=== PATIENT | female | born 1995 | race Caucasian/White ===

== ENCOUNTER 2016-08-17 15:57 | Inpatient (IN) | payer OTHER ==
[~2016-08-17] VITALS: Ht 157.5 cm; Wt 66.7 kg
[~2016-08-17 15:57] MED LIST: BACTDS PO; CALC600T PO; CEPH-443 PO; FERR240T9 PO; IBUP-1542 PO; PREN-39 PO
[2016-08-17 16:23] VITALS: Ht 157.5 cm; Wt 66.7 kg
[2016-08-17 16:24] VITALS: BP 103/64; PULSE 125; RESP 20
[2016-08-17] MEDS ORDERED: LACTATED RINGER'S 1,000 ML IV STA (16:33)
--- NOTE | 2016-08-17 17:26 | RADRPT ---
Vent Rate: 117 bpm RR Interval: 0 msec IA Interval: 132 msec QRS Duration: 82 msec QT Interval: 316 msec QTC Interval: 440 msec P-R-T [place]: 61 - 11 - 46 degrees Sinus tachycardia Abnormal ECG Electronically Signed By: Doug Brooks [id number]
[2016-08-17] MEDS: LACTATED RINGER'S 1,000 ML IV SCH (18:02)
[2016-08-17 18:52] LABS: ADD SCAN DIFF NO; BASOPHILS % 0.3 % (0.0-2.0); EOSINOPHILS # 0.3 10^3/ul (0.0-0.5); EOSINOPHILS % 2.4 % (0.0-7.0); HEMATOCRIT 31.4 % (37.0-47.0); HEMOGLOBIN 10.6 g/dl (12.0-16.0); LYMPHOCYTES # 1.7 10^3/ul (0.8-2.9); LYMPHOCYTES % 12.6 % (15.0-51.0); MEAN CORPUSCULAR HEMOGLOBIN 29.4 pg (29.0-33.0); MEAN CORPUSCULAR HGB CONC 33.8 g/dl (32.0-37.0); MEAN CORPUSCULAR VOLUME 87.2 fl (82.0-101.0); MONOCYTE # 0.9 10^3/ul (0.3-0.9); MONOCYTES % 6.4 % (0.0-11.0); NEUTROPHIL # 10.5 10^3/ul (1.6-7.5); NEUTROPHILS % 77.6 % (39.0-77.0); PLATELET COUNT 148 10^3/UL (140-415); RED CELL DISTRIBUTION WIDTH 12.6 % (11.5-14.5); WHITE BLOOD COUNT 13.5 10^3/ul (4.8-10.8)
[2016-08-17 18:57] LABS: ADD UMIC NO; URINE BILIRUBIN (Dip) NEGATIVE (NEGATIVE); URINE BLOOD (Dip) NEGATIVE (NEGATIVE); URINE COLOR LT. YELLOW (YELLOW); URINE GLUCOSE (Dip) NEGATIVE (NEGATIVE); URINE KETONES (Dip) NEGATIVE (NEGATIVE); URINE LEUKOCYTE ESTERASE (Dip) NEGATIVE (NEGATIVE); URINE NITRITE (Dip) NEGATIVE (NEGATIVE); URINE TOTAL PROTEIN (Dip) NEGATIVE (NEGATIVE); URINE UROBILINOGEN (Dip) 0.2 E.U./dL (0.1-1.0)
[2016-08-17 19:09] LABS: ALBUMIN 2.9 g/dl (3.3-4.9)
[2016-08-17 19:10] LABS: POTASSIUM 4.5 mmol/L (3.5-5.1)
[2016-08-17 19:12] LABS: BILIRUBIN,INDIRECT 0.2 mg/dl (0-1.1); BILIRUBIN,TOTAL 0.2 mg/dl (0.2-1.3); CREATININE 0.4 mg/dl (0.44-1.00)
[2016-08-17 19:13] LABS: ALBUMIN/GLOBULIN RATIO 0.76; CALCIUM 8.9 mg/dl (8.4-10.2); TOTAL PROTEIN 6.7 g/dl (6.1-8.1)
--- NOTE | 2016-08-17 20:01 | QN ---
Documentation Comment 21 y/o female at 35 + weeks sent in from clinic for finding of asymptomatic tachycardia Patient denies GI symptoms and also denies fever General P/E remained normal except for tachycardia EKG: T inversion on anterior leads Patient's pulse down to 100 and 99 since IV hydration Will obtain medical consult and continue to hydrate If Oked by data warehouse consultant will D/C home ! BOB BARON MD Aug 17, 2016 20:01
[2016-08-17] MEDS ORDERED: ACETAMINOPHEN 325 MG TAB PO PRN (21:30)
[2016-08-17] MEDS ORDERED: DOCUSATE SODIUM 100 MG CAP PO PRN (21:30)
--- NOTE | 2016-08-17 22:28 | TRIAGE ---
OB Triage Datetime Report Generated by CPN: 08/17/2016 22:28 Datetime: 08/17/2016 21:16 Stage of : OB Triage Datetime: 08/17/2016 21:13 Stage of : OB Triage Datetime: 08/17/2016 20:52 Stage of : OB Triage Labor Evaluation Frequency: 0 Monitor Mode: External Resting Tone [place]: Relaxed Heart Rate FHR Baseline Rate: 130 Monitor Mode: External US Variability: Moderate 6-25 bpm Accelerations: 15X15 Decelerations: None Category: Category I Datetime: 08/17/2016 20:03 Stage of : OB Triage Labor Evaluation Frequency: 0 Monitor Mode: External Resting Tone [place]: Relaxed Heart Rate FHR Baseline Rate: 140 Monitor Mode: External US FHR Baseline Changes: No Baseline Change Variability: Moderate 6-25 bpm Accelerations: 15X15 Decelerations: None Category: Category I Datetime: 08/17/2016 19:25 Stage of : OB Triage Datetime: 08/17/2016 19:17 Stage of : OB Triage Datetime: 08/17/2016 19:00 Stage of : OB Triage Monitor Mode: External Resting Tone [place]: Relaxed Heart Rate FHR Baseline Rate: 150 Monitor Mode: External US FHR Baseline Changes: No Baseline Change Variability: Moderate 6-25 bpm Accelerations: 15X15 Decelerations: None Category: Category I Datetime: 08/17/2016 18:00 Stage of : OB Triage Labor Evaluation Frequency: 0 Monitor Mode: External Resting Tone [place]: Relaxed Heart Rate FHR Baseline Rate: 150 Monitor Mode: External US Variability: Moderate 6-25 bpm Accelerations: 15X15 Decelerations: None Category: Category I Datetime: 08/17/2016 17:00 Labor Evaluation Frequency: 0 Monitor Mode: External Resting Tone [place]: Relaxed Heart Rate FHR Baseline Rate: 145 Monitor Mode: External US Variability: Moderate 6-25 bpm Accelerations: 15X15 Decelerations: None Category: Category I Datetime: 08/17/2016 16:18 Assessment Type: Triage Maternal Assessment Level of Consciousness: Fully Conscious DTR's/Clonus: DTRs 2+; No Clonus Headache: Denies Blurred Vision: No Respiratory Effort: Unlabored Breath Sounds, Left: Clear and Equal Breath Sounds, Right: Clear and Equal Nausea/Vomiting: Denies (Annotations: VOMOTING X2. LAST NIGHT AND THIS AM) RUQ Epigastric Pain: Denies Lower Extremities Edema: None Degree: None Upper Extremities Edema: None Degree: None Facial Edema: None Fall Risk Assessment History of Falling: (0) No Secondary Diagnosis: (0) No Ambulatory Aid: (0) Bedrest/Nurse Assist IV Therapy: (0) No Gait: (0) Normal/Bedrest/Immobile Mental Status: (0) Oriented to Own Ability Fall Score: 0 Fall Risk Score Definition: No Risk: No action required Datetime: 08/17/2016 16:16 Time of Arrival: 08/17/2016 15:50 EGA: 35.6 Arrived By: Ambulatory Arrived From: Office Chief Complaint: TACHYCARDIA, SORE THROAT, COLD SX,EMESIS X2, GENERALIZED WEAKNESS Movement: Present Contractions: Occasional Rupture of Membranes: Denies Vaginal Bleeding: None Vaginal Discharge: Denies Recent Sexual Intercouse: Denies Abdominal Trauma: Not Applicable Patient Complaints: Other Time Provider Notified: 08/17/2016 16:17 Provider Notified: BAO Initial Plan: VS, EFM, EKG, IV HYDRATION Datetime: 08/17/2016 16:12 Stage of : OB Triage Monitor Mode: External Monitor Mode: External US
[2016-08-18] MEDS: LACTATED RINGER'S 1,000 ML IV SCH ×2 (03:28→11:16)
--- NOTE | 2016-08-18 05:54 | CONS ---
Date/Time of Note Date/Time of Note DATE: 08/18/16 TIME: 05:32 Assessment/Plan Assessment/Plan Additional Assessment/Plan 1. Sinus Tachycardia with TWI in anterior leads: with no chest pain - Cont IVF as HR is improving and she showed physical exam finding of dehydration - Will check troponin, thyroid profile and Obtain a 2D-echo - will repeat EKG - Cardiology consult as needed 2. Rule out- Influenza - will check Inf A & B 3. Leukocytosis: probably 2/2 above - will f/u result - UA neg for UTI. Will however check urine culture given reported lower back/ right flank area pain. Additional infectious w/u as needed 4. 35 weeks : no complication - mgmt per OB Will cont to follow and and provide further recommendation per clinical course Consultation Date/Type/Reason Admit Date/Time Aug 17, 2016 at 21:40 Reason for Consultation Tachycardia and Abnormal EKG . Hx of Present Illness This is a 21 yo female who is currently 35 weeks who was admitted for tachycardia and abnormal EKG. She initially came for regular check-up and found to be tachycardic(sinus). EKG showed TWI in anterior leads and as such admitted for further work-up. She is accompanied by her who also provided history. She complained of "cold" which she said got from her 18month old child. Main symptom is runny nose. she also reported some throat pain with po intake and when touching her neck anteriorly. Denied cough, fever/chills or myalgia. Did however c/o lower back pain, which is slightly on the right side. She also said she has been slightly short of breath and dizzy for last few days when doing some house work, otherwise denied palpitations or chest pain. she did have an episode of vomiting last night shortly after having a soup. Denied diaphoresis. In the triage, she received IVF and tachycardia has improved from around 120 to 100. She does have dry lips and dry oral mucosa. . Past Medical History Medical History: no pertinent history Past Surgical History Past Surgical Hx: no surgical history Social History Alcohol Use: none Smoking Status: Never smoker Drug Use: none Exam/Review of Systems Vital Signs Vitals Vital Signs Date Time Temp Pulse Resp B/P Pulse Ox O2 Delivery O2 Flow Rate FiO2 08/17/16 16:24 98.6 125 20 103/64 Room Air Intake and Output 08/17/16 08/17/16 08/18/16 15:00 23:00 07:00 Intake Total 1250 ml 625 ml Output Total 1000 ml Balance 1250 ml -375 ml Exam Constitutional: alert, oriented, well developed Head: atraumatic, normocephalic Eyes: EOMI Neck: other (right sided neck pain on palpation) Respiratory: clear to auscultation, normal air movement Cardiovascular: other (tachycardic with regular rhythm) Gastrointestinal: non-tender, other ( abd), soft Extremities: normal pulses, other (no edema) Results Result Diagram: 08/17/16 1755 08/17/16 1755 Results 24 hrs Laboratory Tests Test 08/17/16 17:55 08/17/16 23:53 Alanine Aminotransferase (ALT/SGPT) 20 Albumin 2.9 L Albumin/Globulin Ratio 0.76 Alkaline Phosphatase 121 Anion Gap 12 Aspartate Amino Transf (AST/SGOT) 16 Basophils # 0.0 Basophils % 0.3 Blood Urea Nitrogen 4 L Calcium Level 8.9 Carbon Dioxide Level 27 Chloride Level 103 Creatinine 0.40 L Direct Bilirubin 0.00 Eosinophils # 0.3 Eosinophils % 2.4 Globulin 3.80 H Glucose Level 98 Hematocrit 31.4 L Hemoglobin 10.6 L Indirect Bilirubin 0.2 Lymphocytes # 1.7 Lymphocytes % 12.6 L Mean Corpuscular Hemoglobin 29.4 Mean Corpuscular Hemoglobin Concent 33.8 Mean Corpuscular Volume 87.2 Mean Platelet Volume 11.0 #H Monocytes # 0.9 Monocytes % 6.4 Neutrophils # 10.5 H Neutrophils % 77.6 H Nucleated Red Blood Cells # 0.0 Nucleated Red Blood Cells % 0.0 Platelet Count 148 Potassium Level 4.5 Red Blood Count 3.60 L Red Cell Distribution Width 12.6 Sodium Level 137 Total Bilirubin 0.2 Total Protein 6.7 Urine Bilirubin NEGATIVE Urine Clarity CLEAR Urine Color LT. YELLOW Urine Glucose NEGATIVE Urine Hemoglobin NEGATIVE Urine Ketones NEGATIVE Urine Leukocyte Esterase NEGATIVE Urine Nitrite NEGATIVE Urine Specific [place] <=1.005 L Urine Total Protein NEGATIVE Urine Urobilinogen 0.2 E.U./dL Urine pH 6.5 White Blood Count 13.5 H Creatinine Kinase MB (Mass) 0.70 Free Thyroxine 0.94 Thyroid Stimulating Hormone (TSH) 1.890 Troponin I < 0.012 Medications Medications Current Medications Lactated Ringer's (Lr) 1,000 ml @ 125 mls/hr Q8H IV Last administered on t 03:28; Admin Dose 125 MLS/HR; Start 08/17/16 at 18:00 Prenat Multivit/ Newspaper Columnist/Iron/Folic Ac ( S) 1 tab DAILY PO ; Start at 09:00 Docusate Sodium (Colace) 100 mg DAILY PRN PO CONSTIPATION; Start 08/17/16 at 21 :30 Acetaminophen (Tylenol Tab) 650 mg Q4H PRN PO PAIN AND OR ELEVATED TEMP; Start 08/17/16 at 21:30 NICHOLAS PICKARD MD Aug 18, 2016 05:43
[2016-08-18 08:31] LABS: TROPONIN-I < 0.012 ng/ml (0.00-0.12)
[2016-08-18] MEDS ORDERED: MULTIVIT/MIN/FOLATE/IRON/PREN TAB PO SCH (09:00)
--- NOTE | 2016-08-18 11:26 | RADRPT ---
Echocardiogram Report Patient Name: DIAN SALAZAR Gender: Female Date: 1995 Study Date: 18-Aug-2016 Clerical Receptionist: Christos Long [facility] Location: 2270 Ref. Physician: NICHOLAS PICKARD Quality: Good Procedures: Transthoracic echocardiogram with complete 2D, M-Mode, and doppler examination. Indications: Abnormal EKG. Tachycardia. 2D/M Mode Doppler Measurement Value Normal Ranges Measurement Value Normal Ranges LVIDd 2D 4.9 3.5 - 5.6 cm AV Peak Alberto 1.2 m/sec LVIDs 2D 3.4 2.1 - 4.1 cm AV Peak PG 6.2 mmHg LVPWd 2D 0.8 0.6 - 1.1 cm LVOT Peak Alberto 1.0 m/sec IVSd 2D 0.8 0.6 - 1.1 cm LVOT Peak PG 3.8 mmHg AoR Diam 2D 2.5 2.0 - 3.7 cm EDV 2D 113.3 cm3 ESV 2D 39.2 cm3 LA Dimen 2D 3.7 2.3 - 4.0 cm Findings Left Ventricle: Normal left ventricular systolic function. Normal left ventricular cavity size. Normal left ventricular wall thickness. Ejection fraction is visually estimated at 60 %. Tissue Doppler/Mitral Doppler indices are within normal limits. Right Ventricle: Normal right ventricular size. Normal right ventricular systolic function. Left Atrium: The left atrium is normal in size. Right Atrium: The right atrium is normal in size. Mitral Valve: Normal appearance and function of the mitral valve with trace physiologic regurgitation. Aortic Valve: Normal appearance of the aortic valve. No significant aortic stenosis or insufficiency. Tricuspid Valve: Normal appearance and function of the tricuspid valve with trace physiologic regurgitation. Pulmonic Valve: Normal pulmonic valve appearance. Pericardium: Normal pericardium with no significant pericardial effusion. Aorta: Normal aortic root. IVC: Normal size and normal respiratory collapse consistent with normal right atrial pressure. Conclusions 1.Normal left ventricular systolic function. Normal left ventricular cavity size. Normal left ventricular wall thickness. Ejection fraction is visually estimated at 60 %. Tissue Doppler/Mitral Doppler indices are within normal limits. 2.Normal right ventricular size. Normal right ventricular systolic function. 3.The left atrium is normal in size. 4.The right atrium is normal in size. 5.No significant valvular stenosis or regurgitation seen. 6.Normal pericardium with no significant pericardial effusion. Electronically Signed By: Hernan Diaz 18-Aug-2016 11:25:59 -0800 Patient Name: DIAN SALAZAR Study Date: 18-Aug-[id number]
--- NOTE | 2016-08-18 11:56 | PN ---
Date/Time of Note Date/Time of Note DATE: 08/18/16 TIME: 11:45 Assessment/Plan VTE Prophylaxis VTE Prophylaxis Intervention: SCD's Lines/Catheters IV Catheter Type (from Nrsg): Peripheral IV Assessment/Plan Assessment/Plan 1. Sinus Tachycardia, dehydration related, IVF, ok to discharge at evening from medicine 2. GERD, protonix 3. Leukocytosis: stress related, no fever 4. 35 weeks : no complication, mgmt per O Subjective 24 Hr Interval Summary Free Text/Dictation recenly had "cold". poor appetite with less oral intake and she vomited yesterday. Exam/Review of Systems Vital Signs Vitals Vital Signs Date Time Temp Pulse Resp B/P Pulse Ox O2 Delivery O2 Flow Rate FiO2 08/17/16 16:24 98.6 125 20 103/64 Room Air Intake and Output 08/17/16 08/17/16 08/18/16 15:00 23:00 07:00 Intake Total 1250 ml 1000 ml Output Total 1550 ml Balance 1250 ml -550 ml Exam Constitutional: alert, oriented, well developed Psych: nl mood/affect, no complaints Head: atraumatic, normocephalic Eyes: EOMI, nl conjunctiva, nl lids ENMT: nl external ears & nose, nl lips & teeth, nl nasal mucosa & septum Neck: non-tender, supple Respiratory: clear to auscultation, normal air movement, No congested cough, No crackles/rales, No diminished breath sounds, No intercostal retraction, No labored breathing, No other, No respirations, No tactile fremitus, No wheezing Cardiovascular: nl pulses, regular rate and rhythm, No S3, No S4, No bruits, No diastolic murmur, No edema, No gallop, No irregular rhythm, No jugular venous distention (JVD), No murmurs/extra sounds, No other, No rub, No systolic murmur Gastrointestinal: distended (from ), nl liver, spleen, non-tender, soft, No ascites, No bowel sounds, No firm, No hepatomegaly, No mass, No other, No rebound or guarding, No splenomegaly, No surgical scars, No tender Musculoskeletal: nl extremities to inspection Extremities: normal pulses, No calf tenderness, No clubbing, No cyanosis, No edema, No other, No palpable cord, No pitting pedal edema, No tenderness Neurological: REAL ESTATE PROFESSOR II-XII intact, nl mental status, nl speech, nl strength Skin: nl turgor Lymph: nl lymph nodes Results Result Diagram: 08/17/16175408/17/16 175 Results 24 hrs Laboratory Tests Test 08/17/16 17:55 08/17/16 23:53 08/18/16 07:15 Alanine Aminotransferase (ALT/SGPT) 20 Albumin 2.9 L Albumin/Globulin Ratio 0.76 Alkaline Phosphatase 121 Anion Gap 12 Aspartate Amino Transf (AST/SGOT) 16 Basophils # 0.0 Basophils % 0.3 Blood Urea Nitrogen 4 L Calcium Level 8.9 Carbon Dioxide Level 27 Chloride Level 103 Creatinine 0.40 L Direct Bilirubin 0.00 Eosinophils # 0.3 Eosinophils % 2.4 Globulin 3.80 H Glucose Level 98 Hematocrit 31.4 L Hemoglobin 10.6 L Indirect Bilirubin 0.2 Lymphocytes # 1.7 Lymphocytes % 12.6 L Mean Corpuscular Hemoglobin 29.4 Mean Corpuscular Hemoglobin Concent 33.8 Mean Corpuscular Volume 87.2 Mean Platelet Volume 11.0 #H Monocytes # 0.9 Monocytes % 6.4 Neutrophils # 10.5 H Neutrophils % 77.6 H Nucleated Red Blood Cells # 0.0 Nucleated Red Blood Cells % 0.0 Platelet Count 148 Potassium Level 4.5 Red Blood Count 3.60 L Red Cell Distribution Width 12.6 Sodium Level 137 Total Bilirubin 0.2 Total Protein 6.7 Urine Bilirubin NEGATIVE Urine Clarity CLEAR Urine Color LT. YELLOW Urine Glucose NEGATIVE Urine Hemoglobin NEGATIVE Urine Ketones NEGATIVE Urine Leukocyte Esterase NEGATIVE Urine Nitrite NEGATIVE Urine Specific [place] <=1.005 L Urine Total Protein NEGATIVE Urine Urobilinogen 0.2 E.U./dL Urine pH 6.5 White Blood Count 13.5 H Creatinine Kinase MB (Mass) 0.70 0.40 Free Thyroxine 0.94 Thyroid Stimulating Hormone (TSH) 1.890 Troponin I < 0.012 < 0.012 Medications Medications Current Medications Lactated Ringer's (Lr) 1,000 ml @ 125 mls/hr Q8H IV Last administered on t 11:16; Admin Dose 125 MLS/HR; Start 08/17/16 at 18:00 Prenat Multivit/ Form Tamping Machine Operator/Iron/Folic Ac ( S) 1 tab DAILY PO ; Start 3/1/ 17 at 09:00 Docusate Sodium (Colace) 100 mg DAILY PRN PO CONSTIPATION; Start 08/17/16 at 21 :30 Acetaminophen (Tylenol Tab) 650 mg Q4H PRN PO PAIN AND OR ELEVATED TEMP; Start 08/17/16 at 21:30 TANISHA DAVENPORT MD Aug 18, 2016 11:55
[2016-08-18] MEDS ORDERED: SOD CHLORIDE 0.9% 500 ML IV ONE ×2 (12:30)
[2016-08-18] MEDS ORDERED: PANTOPRAZOLE (EC) 40 MG TAB PO SCH (13:00)
--- NOTE | 2016-08-18 14:17 | HP ---
Date/Time of Note Date/Time of Note late entry DATE: 08/18/16 TIME: 14:14 OB - History Hx of Present Free Text/Dictation Sent in from clinic for tachycardia Estimated Due Date: Sep 15, 2016 : 2 Para: 1 Care: Good Care Ultrasounds: Normal mid trimester US Obstetrical Complications: None Medical Complications: None Past Family/Social History * Past Medical, Surgical, Family and Obstetric Histories reviewed from chart. Blood Type: O+ [place]: unknown RPR/VDRL: Negative GBS Status: Unknown HBsAG: Negative OB Admission Exam Vital Signs Vital Signs Vital Signs Date Time Temp Pulse Resp B/P Pulse Ox O2 Delivery O2 Flow Rate FiO2 08/17/16 16:24 98.6 125 20 103/64 Room Air Physical Exam HEENT: WNL Heart: Rhythm Normal Lungs: Clear, Equal Abdomen: WNL Extremities: Normal Reflexes: Normal Cervical Dilatation: None Effacement: 0% Station: -3 Membranes: Intact Heart Rate: 130's Accelerations: Accelerations Present Decelerations: No Decelerations Varibility: Marked Last 72 hours Lab Results CBC & BMP 08/17/16 17:55 Liver Function Test 08/17/16 17:55 Alanine Aminotransferase (ALT/SGPT) 20 Albumin 2.9 L Alkaline Phosphatase 121 Aspartate Amino Transf (AST/SGOT) 16 Direct Bilirubin 0.00 Total Protein 6.7 OB Assessment/Plan Other Assessment: idiopathic tachycardia Other plan: observe for medical consultation BOB BARON MD Aug 18, 2016 14:17
--- NOTE | 2016-08-18 14:18 | QN ---
Documentation Comment Consulted with Dr Rondon over the phone : recommended to CD/C patient home BOB BARON MD Aug 18, 2016 14:18
--- NOTE | 2016-08-18 14:20 | DS ---
Date/Time of Note Date/Time of Note F/U in clinic DATE: 08/18/16 TIME: 14:18 Obstetrical Discharge Record Final Diagnosis Final Diagnosis: not delivered Other Final Diagnosis 21 y/o female admitted with tachycardia and major cardia issues were ruled out Complications Other (Tachycardia) Condition on Discharge Physical Assessment Last Vitals: still has pulse >100 Voiding: Yes Bowel Movement: Yes Breast: Soft, non-tender, Filling Fundus: Other (gravid) Abdomen and Incision: gravid Episiotomy: NA Calf Tenderness: No Patient Condition: Good BOB BARON MD Aug 18, 2016 14:20
--- NOTE | 2016-08-18 14:23 | PD.PPDC ---
METAL CEILING BUILDER Discharge Instruction Provider Information Physician Information 21 y/o female admitted for observation because of tachycardia which remained idiopathic Diagnosis Final Diagnosis: idiopathic tachycardia Condition Patient Condition: Good Diet Diet: Resume Regular Diet Activity/Restrictions Activity: Normal Activity May Shower Restrictions: Nothing in the Vagina Return to clinic for Comment: exertional shortness of breath BOB BARON MD Aug 18, 2016 14:23
--- NOTE | 2016-08-20 13:38 | RADRPT ---
Vent Rate: 0 bpm RR Interval: 0 msec NE Interval: 0 msec QRS Duration: 0 msec QT Interval: 0 msec QTC Interval: 0 msec P-R-T [place]: 0 - 0 - 0 degrees Electronically Signed By: Doug Brooks [id number]
== END 2016-08-18 14:50 | disposition home or self-care (01) | DRG 781 ==
LOC: OBT 15:57 → L-D 15:59 → OBG 21:40 → OBT 21:40
PROVIDERS: ADMIT Obstetrics & Gynecology; ATTEND Obstetrics & Gynecology
DX: O26.893 Other specified pregnancy related conditions, third trimester (principal); O99.113 Other diseases of the blood and blood-forming organs and certain disorders involving the immune mechanism complicating pregnancy, third trimester; O99.283 Endocrine, nutritional and metabolic diseases complicating pregnancy, third trimester; R00.0 Tachycardia, unspecified; E86.0 Dehydration; Z3A.35 35 weeks gestation of pregnancy; O99.613 Diseases of the digestive system complicating pregnancy, third trimester; K21.9 Gastro-esophageal reflux disease without esophagitis; D72.829 Elevated white blood cell count, unspecified
CPT/HCPCS: 36415; 80053; 81003; 82553; 84439; 84443; 84484; 85025; 87086; 87400; 93005; 93306; 96360; 96361; G0463; J7030; J7040; J7120

== ENCOUNTER 2016-08-28 23:30 | Outpatient (CLI) | payer OTHER ==
[~2016-08-28] VITALS: Ht 157.5 cm; Wt 68.7 kg
[~2016-08-28 23:30] MED LIST changes: -BACTDS PO; -CEPH-443 PO; -FERR240T9 PO; -IBUP-1542 PO
[2016-08-28 23:52] VITALS: Ht 157.5 cm; Wt 68.7 kg
[2016-08-28 23:53] VITALS: BP 100/59; PULSE 88; RESP 18
[2016-08-29] MEDS ORDERED: CITRIC ACID/NA CITRATE 30 ML CUP PO ONE (00:30)
--- NOTE | 2016-08-29 01:51 | PN ---
Date/Time of Note Date/Time of Note DATE: 08/29/16 TIME: 01:48 OB Subjective Subjective Subjective 21 yoP 1@ 37 wk 4 days c/o ctx No VB, no LOF, good FM OB Objective Objective Objective Abdomeng- gravid, n/t SVE- 1/70/-2 FHT- Cat I Vamo- irreg ctx Abdomen: WNL Cervical Dilatation: 1cm Effacement: 75% Station: -2 Accelerations: Accelerations Present Decelerations: No Decelerations Contractions on Admission: None Intensity: Mild OB Assessment/Plan Other Assessment: 21 yo P 1 @ 37+ wks, r/o labor - reassuring status, not in labor Other plan: d/c home labor precautions LUIS ROSS MD Aug 29, 2016 01:51
--- NOTE | 2016-08-29 03:43 | TRIAGE ---
OB Triage Datetime Report Generated by CPN: 08/29/2016 03:42 Datetime: 08/29/2016 00:28 Stage of : OB Triage Datetime: 08/29/2016 00:26 Stage of : OB Triage Datetime: 08/29/2016 00:15 Stage of : OB Triage Datetime: 08/28/2016 23:58 Stage of : OB Triage Maternal Assessment Level of Consciousness: Fully Conscious DTR's/Clonus: DTRs 2+; No Clonus Headache: Denies Blurred Vision: No Respiratory Effort: Unlabored; Regular Rhythm; Equal Expansion Breath Sounds, Left: Clear and Equal Breath Sounds, Right: Clear and Equal Nausea/Vomiting: Denies RUQ Epigastric Pain: Denies Lower Extremities Edema: None Upper Extremities Edema: None Facial Edema: None Temperature Route: Oral Fall Risk Assessment History of Falling: (0) No Secondary Diagnosis: (0) No Ambulatory Aid: (0) Bedrest/Nurse Assist IV Therapy: (0) No Gait: (0) Normal/Bedrest/Immobile Mental Status: (0) Oriented to Own Ability Fall Score: 0 Fall Risk Score Definition: No Risk: No action required Labor Evaluation Frequency: 3-4 Monitor Mode: External Duration (sec)2399: 40-70 Quality: Moderate Pattern: Normal: <= 5 Contractions in 10 Minutes Resting Tone [place]: Relaxed Heart Rate FHR Baseline Rate: 140 Monitor Mode: External US Variability: Moderate 6-25 bpm Accelerations: 15X15 Decelerations: None Category: Category I Pain Assessment Pain Scale: 6 Pain Presence: Intermittent Pain Type: Contraction Pain Location: Abdomen Pain Goal: 3 Pain Relief Measures: Comfort Measures Datetime: 08/28/2016 23:56 Stage of : OB Triage Time of Arrival: 08/28/2016 23:25 EGA: 37.4 Arrived By: Ambulatory Arrived From: Home Chief Complaint: PT C/O ABDOMEN PAIN Movement: Present Contractions: Irregular Time Contractions Began: 08/28/2016 19:30 Contractions: 3-5 Rupture of Membranes: Denies Vaginal Discharge: Denies Recent Sexual Intercouse: Denies Abdominal Trauma: Not Applicable Patient Complaints: Contractions Time Provider Notified: 08/29/2016 00:26 Provider Notified: Dr Smith Initial Plan: INITIAL PHYSICAL ASSESSMENT , TOCO AND US APPLIED Vaginal Exam Dilatation (cms): 1.0 Effacement (%): 70 Station: -2 Exam By: MANDI DEAN Membrane Status: Intact Datetime: 08/18/2016 14:02 Labor Evaluation Frequency: 1 Monitor Mode: External Duration (sec)2399: 60 Quality: Mild Resting Tone [place]: Relaxed Heart Rate FHR Baseline Rate: 140 Monitor Mode: External US FHR Baseline Changes: No Baseline Change Variability: Moderate 6-25 bpm Accelerations: 15X15 Decelerations: None Category: Category I Datetime: 08/18/2016 13:00 Labor Evaluation Frequency: 0 Monitor Mode: External Resting Tone [place]: Relaxed Heart Rate FHR Baseline Rate: 140 Monitor Mode: External US FHR Baseline Changes: No Baseline Change Variability: Moderate 6-25 bpm Accelerations: 15X15 Decelerations: None Category: Category I Datetime: 08/18/2016 12:07 Labor Evaluation Frequency: 0 Monitor Mode: External Resting Tone [place]: Relaxed Heart Rate FHR Baseline Rate: 140 Monitor Mode: External US FHR Baseline Changes: No Baseline Change Variability: Moderate 6-25 bpm Accelerations: 15X15 Decelerations: None Category: Category I Datetime: 08/18/2016 11:02 Pain Location: Head Pain Assessment Comments: pt refuses tylenol or ice pack. states she wants to sleep Datetime: 08/18/2016 10:57 Labor Evaluation Frequency: 0 Monitor Mode: External Resting Tone [place]: Relaxed Heart Rate FHR Baseline Rate: 140 Monitor Mode: External US FHR Baseline Changes: No Baseline Change Variability: Moderate 6-25 bpm Accelerations: 15X15 Decelerations: None Category: Category I Datetime: 08/18/2016 10:47 Labor Evaluation Frequency: 0 Monitor Mode: External Resting Tone [place]: Relaxed Heart Rate FHR Baseline Rate: 140 Monitor Mode: External US FHR Baseline Changes: No Baseline Change Variability: Moderate 6-25 bpm Accelerations: 15X15 Decelerations: None Category: Category I Datetime: 08/18/2016 10:00 Labor Evaluation Frequency: 0 Monitor Mode: External Resting Tone [place]: Relaxed Heart Rate FHR Baseline Rate: 135 Monitor Mode: External US FHR Baseline Changes: No Baseline Change Variability: Moderate 6-25 bpm Accelerations: 15X15 Decelerations: None Category: Category I Pain Presence: None/Denies Membrane Status: Intact Datetime: 08/18/2016 09:07 Heart Rate FHR Baseline Rate: 135 Monitor Mode: External US FHR Baseline Changes: No Baseline Change Variability: Moderate 6-25 bpm Accelerations: 15X15 Decelerations: None Category: Category I Datetime: 08/18/2016 08:11 Assessment Type: Ongoing Assessment Maternal Assessment Level of Consciousness: Fully Conscious DTR's/Clonus: DTRs 2+; No Clonus Headache: Denies Blurred Vision: No Respiratory Effort: Unlabored; Regular Rhythm; Equal Expansion Breath Sounds, Left: Clear and Equal Breath Sounds, Right: Clear and Equal Nausea/Vomiting: Denies RUQ Epigastric Pain: Denies Facial Edema: None Fall Risk Assessment History of Falling: (0) No Secondary Diagnosis: (0) No Ambulatory Aid: (0) Bedrest/Nurse Assist Gait: (0) Normal/Bedrest/Immobile Mental Status: (0) Oriented to Own Ability Datetime: 08/18/2016 07:53 Labor Evaluation Frequency: 1 Monitor Mode: External Quality: Mild Resting Tone [place]: Relaxed Heart Rate FHR Baseline Rate: 140 Monitor Mode: External US FHR Baseline Changes: No Baseline Change Variability: Moderate 6-25 bpm Accelerations: 15X15 Decelerations: Variable Category: Category II Datetime: 08/18/2016 07:49 Pain Presence: None/Denies Datetime: 08/18/2016 06:40 Stage of : Antepartum Maternal Assessment Level of Consciousness: Fully Conscious Labor Evaluation Frequency: 0 Monitor Mode: External Resting Tone [place]: Relaxed Heart Rate FHR Baseline Rate: 125 Monitor Mode: External US FHR Baseline Changes: No Baseline Change Variability: Moderate 6-25 bpm Accelerations: 15X15 Decelerations: None Datetime: 08/18/2016 05:34 Stage of : Antepartum Maternal Assessment Level of Consciousness: Fully Conscious Labor Evaluation Frequency: 0 Monitor Mode: External Resting Tone [place]: Relaxed Heart Rate FHR Baseline Rate: 125 Monitor Mode: External US FHR Baseline Changes: No Baseline Change Variability: Moderate 6-25 bpm Accelerations: 15X15 Decelerations: None Datetime: 08/18/2016 04:40 Stage of : Antepartum Maternal Assessment Level of Consciousness: Fully Conscious Labor Evaluation Frequency: 0 Monitor Mode: External Resting Tone [place]: Relaxed Heart Rate FHR Baseline Rate: 125 Monitor Mode: External US FHR Baseline Changes: No Baseline Change Variability: Moderate 6-25 bpm Accelerations: 15X15 Decelerations: None Datetime: 08/18/2016 03:40 Stage of : Antepartum Maternal Assessment Level of Consciousness: Fully Conscious Labor Evaluation Frequency: 0 Monitor Mode: External Resting Tone [place]: Relaxed Heart Rate FHR Baseline Rate: 125 Monitor Mode: External US FHR Baseline Changes: No Baseline Change Variability: Moderate 6-25 bpm Accelerations: 15X15 Decelerations: None Datetime: 08/18/2016 02:40 Stage of : Antepartum Maternal Assessment Level of Consciousness: Fully Conscious Temperature Route: Oral Labor Evaluation Frequency: 0 Monitor Mode: External Resting Tone [place]: Relaxed Heart Rate FHR Baseline Rate: 130 Monitor Mode: External US FHR Baseline Changes: No Baseline Change Variability: Moderate 6-25 bpm Accelerations: 15X15 Decelerations: None Category: Category I Datetime: 08/18/2016 01:40 Stage of : Antepartum Maternal Assessment Level of Consciousness: Fully Conscious Labor Evaluation Frequency: 0 Monitor Mode: External Resting Tone [place]: Relaxed Heart Rate FHR Baseline Rate: 135 Monitor Mode: External US FHR Baseline Changes: No Baseline Change Variability: Moderate 6-25 bpm Datetime: 08/18/2016 00:40 Stage of : Antepartum Maternal Assessment Level of Consciousness: Fully Conscious Labor Evaluation Frequency: 0 Monitor Mode: External Resting Tone [place]: Relaxed Heart Rate FHR Baseline Rate: 135 Monitor Mode: External US FHR Baseline Changes: No Baseline Change Variability: Moderate 6-25 bpm Comments: Pt will not stay in one position , keeps getting up to BR or rolling from side to side i n the bed. Can not keep baby on monitor. Datetime: 08/18/2016 00:15 Stage of : Antepartum Datetime: 08/17/2016 23:40 Stage of : Antepartum Maternal Assessment Level of Consciousness: Fully Conscious DTR's/Clonus: DTRs 2+; No Clonus Headache: Denies Breath Sounds, Left: Clear and Equal Breath Sounds, Right: Clear and Equal Labor Evaluation Frequency: 0 Monitor Mode: External Resting Tone [place]: Relaxed Heart Rate FHR Baseline Rate: 135 Monitor Mode: External US FHR Baseline Changes: No Baseline Change Variability: Moderate 6-25 bpm Datetime: 08/17/2016 22:40 Stage of : Antepartum Maternal Assessment Level of Consciousness: Fully Conscious DTR's/Clonus: DTRs 2+; No Clonus Headache: Denies Breath Sounds, Left: Clear and Equal Breath Sounds, Right: Clear and Equal Labor Evaluation Frequency: 0 Monitor Mode: External Resting Tone [place]: Relaxed Heart Rate FHR Baseline Rate: 135 Monitor Mode: External US FHR Baseline Changes: No Baseline Change Variability: Moderate 6-25 bpm Datetime: 08/17/2016 21:44 Stage of : Antepartum Assessment Type: Admission Assessment Vaginal Bleeding: None Maternal Assessment Level of Consciousness: Fully Conscious DTR's/Clonus: DTRs 2+; No Clonus Headache: Denies Blurred Vision: No Respiratory Effort: Unlabored; Regular Rhythm; Equal Expansion Breath Sounds, Left: Clear and Equal Breath Sounds, Right: Clear and Equal Nausea/Vomiting: Denies RUQ Epigastric Pain: Denies Lower Extremities Edema: None Upper Extremities Edema: None Facial Edema: None Temperature Route: Axillary Fall Risk Assessment History of Falling: (0) No Secondary Diagnosis: (0) No Ambulatory Aid: (0) Bedrest/Nurse Assist IV Therapy: (0) No Gait: (0) Normal/Bedrest/Immobile Mental Status: (0) Oriented to Own Ability Fall Score: 0 Fall Risk Score Definition: No Risk: No action required Labor Evaluation Frequency: 0 Monitor Mode: External Resting Tone [place]: Relaxed Heart Rate FHR Baseline Rate: 135 Monitor Mode: External US FHR Baseline Changes: No Baseline Change Variability: Moderate 6-25 bpm Accelerations: 15X15 Decelerations: None Datetime: 08/17/2016 16:18 Fall Score: 0 Fall Risk Score Definition: No Risk: No action required Datetime: 08/17/2016 16:16 EGA: 35.6
== END 2016-08-29 01:59 | disposition home or self-care (01) ==
LOC: OBT 23:30 → L-D 23:31 → OBT 08-29 01:59
PROVIDERS: ATTEND Obstetrics & Gynecology
DX: O62.9 Abnormality of forces of labor, unspecified (principal); Z3A.37 37 weeks gestation of pregnancy
CPT/HCPCS: G0463

== ENCOUNTER 2016-09-01 15:42 | Outpatient (CLI) | payer OTHER ==
[~2016-09-01] VITALS: Ht 157.5 cm; Wt 70.0 kg
[2016-09-01 16:06] VITALS: Ht 157.5 cm; Wt 70.0 kg
[2016-09-01 16:27] LABS: ADD UMIC NO; URINE BILIRUBIN (Dip) NEGATIVE (NEGATIVE); URINE BLOOD (Dip) NEGATIVE (NEGATIVE); URINE COLOR LT. YELLOW (YELLOW); URINE GLUCOSE (Dip) NEGATIVE (NEGATIVE); URINE KETONES (Dip) NEGATIVE (NEGATIVE); URINE LEUKOCYTE ESTERASE (Dip) NEGATIVE (NEGATIVE); URINE NITRITE (Dip) NEGATIVE (NEGATIVE); URINE TOTAL PROTEIN (Dip) NEGATIVE (NEGATIVE); URINE UROBILINOGEN (Dip) 0.2 E.U./dL (0.1-1.0)
--- NOTE | 2016-09-01 16:41 | RADRPT ---
PROCEDURE: OB ultrasound for biophysical profile CLINICAL INDICATION: Poor tone. TECHNIQUE: Multiple sonographic images of the pelvis were obtained. Transabdominal views of the g ravid uterus are available for review. The images were reviewed on a PACS workstation. COMPARISON: None FINDINGS: breathing movement = 2/2 tone = 2/2 motion = 2/2 MARY = 2/2 MARY = 25.1 cm Single live intrauterine with cardiac activity of 139 bpm. position is cephal ic. The placenta is anterior. IMPRESSION: 1. Single live intrauterine gestation. 2. Biophysical profile = 8/8. 3. MARY = 25.1 cm. RPTAT: HH .Alexandra Rodriguez MD, MD Date Time Electronically viewed and signed by .Alexandra Rodriguez MD, on 09/01/2016 16:40 .G/
--- NOTE | 2016-09-01 19:38 | QN ---
Documentation Comment 22-year-old with IUP at 38 weeks here today presented with complaint of leaking of fluid as well as labor. She denied any decreased movement. Her antepartum course was uncomplicated. General appearance: Alert and oriented 4 is not in any acute distress. Abdomen: Soft, gravid, fundal height consistent with gestational age. No abdominal tenderness Assessment: Examination: Negative pooling, negative R OM test, negative nitrazine. UA: Negative occasional contractions seen on the monitor. NST: Category 1 MARY: 25.1 Patient has been observed and no cervical change noted PROCEDURE: OB ultrasound for biophysical profile CLINICAL INDICATION: Poor tone. TECHNIQUE: Multiple sonographic images of the pelvis were obtained. Transabdominal views of the gravid uterus are available for review. The images were reviewed on a PACS workstation. COMPARISON: None FINDINGS: breathing movement = 2/2 tone = 2/2 motion = 2/2 MARY = 2/2 MARY = 25.1 cm Single live intrauterine with cardiac activity of 139 bpm. position is cephalic. The placenta is anterior. IMPRESSION: 1. Single live intrauterine gestation. 2. Biophysical profile = 8/8. 3. MARY = 25.1 cm. RPTAT: HH Assessment: IUP at 38 weeks No evidence of PROM or labor Adequate MARY DC home Labor precaution and kick count discussed with the patient Follow-up with OB clinic in a couple days recommended next Return to triage if she has any decreased movement, vaginal bleeding, contractions or any other concerns. Patient verbalized understanding. ANGELINA RILEY MD Sep 01, 2016 19:38
== END 2016-09-01 17:25 | disposition home or self-care (01) ==
LOC: OBT 15:42 → L-D 15:42 → OBT 17:25
PROVIDERS: ATTEND Obstetrics & Gynecology
DX: O42.92 Full-term premature rupture of membranes, unspecified as to length of time between rupture and onset of labor (principal); Z3A.38 38 weeks gestation of pregnancy
CPT/HCPCS: 76818; 81003; 84112; Z7500; G0463

== ENCOUNTER 2016-09-05 18:10 | Inpatient (IN) | payer OTHER ==
[~2016-09-05] VITALS: Ht 157.5 cm; Wt 98.4 kg
[2016-09-05] MEDS ORDERED: LACTATED RINGER'S 1,000 ML IV PRN (18:20)
[2016-09-05 18:21] VITALS: Ht 157.5 cm; Wt 98.4 kg
[2016-09-05] MEDS ORDERED: IBUPROFEN 600 MG TAB PO PRN (18:30)
[2016-09-05] MEDS ORDERED: CARBOPROST 250 MCG INJ IM PRN (18:30)
[2016-09-05] MEDS ORDERED: LIDOCAINE 1% (MPF) 30 ML INJ INJ PRN (18:30)
[2016-09-05] MEDS ORDERED: OXYTOCIN 30 UNITS/LR 500 ML IV PRN (18:30)
[2016-09-05] MEDS ORDERED: BUTORPHANOL 2 MG INJ IV PRN (18:30)
[2016-09-05] MEDS ORDERED: MISOPROSTOL 200 MCG TAB PR PRN (18:30)
[2016-09-05] MEDS ORDERED: MINERAL OIL LIGHT 10 ML VIAL TOP ONE (18:30)
[2016-09-05] MEDS ORDERED: METHYLERGONOVINE 0.2 MG INJ IM PRN (18:30)
[2016-09-05] MEDS ORDERED: OXYTOCIN 30 UNITS/LR 500 ML IV SCH ×2 (18:30)
[2016-09-05 18:32] LABS: ADD SCAN DIFF NO
--- NOTE | 2016-09-05 18:33 | TRIAGE ---
OB Triage Datetime Report Generated by CPN: 09/05/2016 18:33 Datetime: 09/05/2016 18:25 Assessment Type: Admission Assessment Maternal Assessment Level of Consciousness: Fully Conscious DTR's/Clonus: DTRs 2+; No Clonus Headache: Denies Blurred Vision: No Respiratory Effort: Unlabored; Regular Rhythm; Equal Expansion Breath Sounds, Left: Clear and Equal Breath Sounds, Right: Clear and Equal Nausea/Vomiting: Denies RUQ Epigastric Pain: Denies Lower Extremities Edema: None Degree: None Upper Extremities Edema: None Degree: None Facial Edema: None Fall Risk Assessment History of Falling: (0) No Secondary Diagnosis: (0) No Ambulatory Aid: (0) Bedrest/Nurse Assist IV Therapy: (0) No Gait: (0) Normal/Bedrest/Immobile Mental Status: (0) Oriented to Own Ability Fall Score: 0 Fall Risk Score Definition: No Risk: No action required Datetime: 09/05/2016 18:19 Stage of : Labor Assessment Type: Admission Assessment Vaginal Bleeding: None Maternal Assessment Level of Consciousness: Fully Conscious DTR's/Clonus: DTRs 2+; No Clonus Headache: Denies Blurred Vision: No Respiratory Effort: Unlabored; Regular Rhythm; Equal Expansion Breath Sounds, Left: Clear and Equal Breath Sounds, Right: Clear and Equal Nausea/Vomiting: Denies RUQ Epigastric Pain: Denies Lower Extremities Edema: None Degree: None Upper Extremities Edema: None Degree: None Facial Edema: None Fall Risk Assessment History of Falling: (0) No Secondary Diagnosis: (0) No Ambulatory Aid: (0) Bedrest/Nurse Assist IV Therapy: (0) No Gait: (0) Normal/Bedrest/Immobile Mental Status: (0) Oriented to Own Ability Fall Score: 0 Fall Risk Score Definition: No Risk: No action required Resting Tone [place]: Relaxed Heart Rate FHR Baseline Rate: 130 Variability: Moderate 6-25 bpm Accelerations: 10X10 Decelerations: None Category: Category II Pain Assessment Pain Scale: 8 Pain Presence: Intermittent Pain Type: Contraction Pain Location: Abdomen Pain Goal: 0 Vaginal Exam Dilatation (cms): 7.0 Effacement (%): 80 Station: -2 Membrane Status: Intact Datetime: 09/05/2016 18:18 Time of Arrival: 09/05/2016 18:18 EGA: 38.4 Arrived By: Stretcher Arrived From: Home Datetime: 09/05/2016 18:05 Time of Arrival: 09/05/2016 18:05 EGA: 38.4 Arrived By: Wheelchair Arrived From: Home Chief Complaint: R/O LABOR Movement: Present Contractions: Regular Time Contractions Began: 09/05/2016 08:00 Contractions: 5 MIN Rupture of Membranes: Denies Vaginal Discharge: Denies Recent Sexual Intercouse: Denies Abdominal Trauma: Not Applicable Patient Complaints: Contractions Additional Patient Complaints: NONE Time Provider Notified: 09/05/2016 18:10 Provider Notified: BAO Initial Plan: MONITOR AND VE Datetime: 09/01/2016 17:15 Stage of : OB Triage Datetime: 09/01/2016 17:03 Stage of : OB Triage Datetime: 09/01/2016 16:51 Labor Evaluation Frequency: 4-6 Monitor Mode: External Duration (sec)2399: 40-50 Pattern: Normal: <= 5 Contractions in 10 Minutes Resting Tone [place]: Relaxed Heart Rate FHR Baseline Rate: 135 Monitor Mode: External US Variability: Moderate 6-25 bpm Accelerations: 10X10 Decelerations: None Category: Category I Pain Assessment Pain Scale: 0 Pain Presence: None/Denies Pain Type: N/A Pain Goal: 3 Pain Relief Measures: Comfort Measures Datetime: 09/01/2016 16:03 Stage of : OB Triage Assessment Type: Triage Maternal Assessment Level of Consciousness: Fully Conscious DTR's/Clonus: DTRs 2+; No Clonus Headache: Denies Blurred Vision: No Respiratory Effort: Unlabored; Regular Rhythm; Equal Expansion Breath Sounds, Left: Clear and Equal Breath Sounds, Right: Clear and Equal Nausea/Vomiting: Denies RUQ Epigastric Pain: Denies Lower Extremities Edema: None Degree: None Upper Extremities Edema: None Degree: None Facial Edema: None Temperature Route: Axillary Fall Risk Assessment History of Falling: (0) No Secondary Diagnosis: (0) No Ambulatory Aid: (0) Bedrest/Nurse Assist IV Therapy: (0) No Gait: (0) Normal/Bedrest/Immobile Mental Status: (0) Oriented to Own Ability Fall Score: 0 Fall Risk Score Definition: No Risk: No action required Labor Evaluation Frequency: X1 Monitor Mode: External Duration (sec)2399: 30 Quality: Mild Pattern: Normal: <= 5 Contractions in 10 Minutes Heart Rate FHR Baseline Rate: 135 Monitor Mode: External US Variability: Moderate 6-25 bpm Decelerations: None Category: Category II Pain Assessment Pain Scale: 2 Pain Presence: Intermittent Pain Type: Cramping Pain Location: Abdomen Pain Goal: 3 Pain Relief Measures: Comfort Measures Datetime: 09/01/2016 16:00 Time of Arrival: 09/01/2016 15:30 EGA: 38.0 Arrived By: Ambulatory Arrived From: Dr. Krueger Chief Complaint: C/O SROM AT 1500, HAD OFFICE VISIT TODAY AND WAS REFERRED TO HOSPITAL FOR EVALUAT ION. DENIES BLEEDING OR UC'S Movement: Decreased Contractions: Irregular Rupture of Membranes: Unsure Vaginal Bleeding: None Vaginal Discharge: Denies Recent Sexual Intercouse: Denies Abdominal Trauma: Not Applicable Patient Complaints: Cramping Time Provider Notified: 09/01/2016 15:30 Provider Notified: BAO Initial Plan: MONITOR, BPP/MARY, ROM PLUS, NITRAZINE Datetime: 08/29/2016 01:46 Stage of : OB Triage Datetime: 08/29/2016 01:28 Stage of : OB Triage Labor Evaluation Frequency: 3-5 Monitor Mode: External Duration (sec)2399: 60 Quality: Mild Pattern: Normal: <= 5 Contractions in 10 Minutes Resting Tone [place]: Relaxed Heart Rate FHR Baseline Rate: 130 Monitor Mode: External US FHR Baseline Changes: No Baseline Change Variability: Moderate 6-25 bpm Accelerations: 15X15 Decelerations: None Category: Category I Vaginal Exam Dilatation (cms): 1.0 Effacement (%): 70 Station: -3 Exam By: Jeanmarie VENTURA Vaginal Bleeding: None Cervix, Consistency: Soft Cervix, Position: Posterior Presentation 'A': Cephalic Datetime: 08/28/2016 23:58 Fall Score: 0 Fall Risk Score Definition: No Risk: No action required Datetime: 08/28/2016 23:56 EGA: 37.4 Datetime: 08/17/2016 21:44 Fall Score: 0 Fall Risk Score Definition: No Risk: No action required Datetime: 08/17/2016 16:18 Fall Score: 0 Fall Risk Score Definition: No Risk: No action required Datetime: 08/17/2016 16:16 EGA: 35.6
[2016-09-05 18:34] LABS: BASOPHILS % 0.3 % (0.0-2.0); EOSINOPHILS # 0.1 10^3/ul (0.0-0.5); EOSINOPHILS % 0.4 % (0.0-7.0); HEMATOCRIT 33.7 % (37.0-47.0); HEMOGLOBIN 11.5 g/dl (12.0-16.0); LYMPHOCYTES # 2.1 10^3/ul (0.8-2.9); MEAN CORPUSCULAR HEMOGLOBIN 29.6 pg (29.0-33.0); MEAN CORPUSCULAR HGB CONC 34.1 g/dl (32.0-37.0); MEAN CORPUSCULAR VOLUME 86.6 fl (82.0-101.0); MEAN PLATELET VOLUME 10.7 fl (7.4-10.4); MONOCYTE # 0.6 10^3/ul (0.3-0.9); MONOCYTES % 4.9 % (0.0-11.0); NEUTROPHIL # 8.9 10^3/ul (1.6-7.5); NEUTROPHILS % 76.1 % (39.0-77.0); PLATELET COUNT 170 10^3/UL (140-415); RED BLOOD COUNT 3.89 10^6/ul (4.20-5.40); RED CELL DISTRIBUTION WIDTH 12.9 % (11.5-14.5); WHITE BLOOD COUNT 11.8 10^3/ul (4.8-10.8)
[2016-09-05] MEDS: LACTATED RINGER'S 1,000 ML IV SCH ×2 (18:34→20:10)
[2016-09-05 18:51] LABS: INR 1.09; PROTIME 14.1 Sec (12.2-14.2); PT RATIO 1.1
[2016-09-05 18:52] LABS: PARTIAL THROMBOPLASTIN TIME 27.6 Sec (25.0-35.0)
[2016-09-05] MEDS ORDERED: FENTAnyl 2MCG/ML-ROPIV 0.2% 100 ML ONE (19:40)
[2016-09-05] MEDS: LACTATED RINGER'S 1,000 ML IV* SCH (23:44)
--- NOTE | 2016-09-05 23:44 | LDN ---
Date/Time of Note Date/Time of Note DATE: 09/05/16 TIME: 23:41 Delivery Summary of a viable baby girl weighing 3400 grams, or 7#8oz, 18.5" long, and with Apgars of 9/9. Placenta Delivered: Spontaneously Meconium: none Perineum intact?: No Perineal laceration: 2 Perineal laceration repair: Second degree perineal laceration repaired with 2-0 chromic. Anesthesia type: Epidural Estimated blood loss: 250 Sponge & Needle done & correct: Yes All needle counts correct: Yes Any foreign bodies felt in the: No (vagina) Problems: Delivery Information Sex Sex: female Apgars 1 Minute: 9 5 Minute: 9 Suctioning Nose & mouth suctioned at dagoberto: No Delee suction performed: No Umbilical Cord Umbilical cord with: 3 Vessels Cord presentations: no nuchal cord Cord Blood was obtained: Yes Mother & Baby Disposition Disposition Mom & Baby to Maternity; Good: Yes Baby to NICU: No DES NIETO MD Sep 05, 2016 23:44
--- NOTE | 2016-09-05 23:49 | HP ---
Date/Time of Note Date/Time of Note DATE: 09/05/16 TIME: 23:44 OB - History Hx of Present Free Text/Dictation 21 y.o. with an IUP at 38w4d came in active labor at 7cm and progressed easily. Estimated Due Date: Sep 15, 2016 : 2 Para: 1 Care: Good Care Ultrasounds: Normal mid trimester US Obstetrical Complications: None Medical Complications: None Past Family/Social History * Past Medical, Surgical, Family and Obstetric Histories reviewed from chart. Blood Type: B+ Rubella: immune RPR/VDRL: Negative GBS Status: Negative HBsAG: Negative OB Admission Exam Vital Signs Vital Signs BP 108/71 T=98.3 Physical Exam HEENT: WNL Lungs: Clear Abdomen: WNL Extremities: Normal Reflexes: Normal Cervical Dilatation: 7cm Effacement: 75% Station: -2 Membranes: Intact Heart Rate: 130's Accelerations: Accelerations Present Decelerations: No Decelerations Varibility: Moderate Last 72 hours Lab Results CBC & BMP 09/05/16 18:25 OB Assessment/Plan Reason for admission: active labor Plan: Expectant Management DES NIETO MD Sep 05, 2016 23:49
[2016-09-06] MEDS ORDERED: OXYTOCIN 30 UNITS/LR 500 ML IV PRN
[2016-09-06] MEDS ORDERED: MISOPROSTOL 200 MCG TAB PR PRN
[2016-09-06] MEDS ORDERED: CARBOPROST 250 MCG INJ IM PRN
[2016-09-06] MEDS ORDERED: METHYLERGONOVINE 0.2 MG INJ IM PRN
[2016-09-06 01:10] VITALS: BP 92/56; PULSE 74; RESP 20
[2016-09-06] MEDS: OXYCODONE/ASPIRIN (4.88/325) TAB PO PRN ×3 (01:42→15:40)
[2016-09-06] MEDS: BENZOCAINE 20% 56 ML SPRAY TOP PRN (01:43)
[2016-09-06] MEDS: LANOLIN 7 GM TUBE TOP PRN (01:44)
[2016-09-06 02:00] VITALS: BP 95/63; PULSE 71; RESP 19
[2016-09-06 04:20] VITALS: BP 101/65; PULSE 84; RESP 18
[2016-09-06] MEDS: IBUPROFEN 600 MG TAB PO SCH ×5 (05:41→23:35)
[2016-09-06] MEDS: LACTATED RINGER'S 1,000 ML IV* SCH (07:41)
[2016-09-06 08:00] VITALS: BP 106/63; PULSE 79; RESP 18
[2016-09-06 08:14] LABS: ADD SCAN DIFF NO
[2016-09-06 08:44] LABS: BASOPHILS % 0.3 % (0.0-2.0); EOSINOPHILS # 0.1 10^3/ul (0.0-0.5); EOSINOPHILS % 0.7 % (0.0-7.0); HEMATOCRIT 31.8 % (37.0-47.0); HEMOGLOBIN 10.7 g/dl (12.0-16.0); LYMPHOCYTES # 2.3 10^3/ul (0.8-2.9); LYMPHOCYTES % 19.1 % (15.0-51.0); MEAN CORPUSCULAR HEMOGLOBIN 29.2 pg (29.0-33.0); MEAN CORPUSCULAR HGB CONC 33.6 g/dl (32.0-37.0); MEAN CORPUSCULAR VOLUME 86.6 fl (82.0-101.0); MEAN PLATELET VOLUME 11.6 fl (7.4-10.4); MONOCYTE # 0.8 10^3/ul (0.3-0.9); MONOCYTES % 6.9 % (0.0-11.0); NEUTROPHIL # 8.6 10^3/ul (1.6-7.5); NEUTROPHILS % 72.7 % (39.0-77.0); PLATELET COUNT 157 10^3/UL (140-415); RED BLOOD COUNT 3.67 10^6/ul (4.20-5.40); RED CELL DISTRIBUTION WIDTH 12.9 % (11.5-14.5); WHITE BLOOD COUNT 11.8 10^3/ul (4.8-10.8)
[2016-09-06 16:00] VITALS: BP 106/63; PULSE 71; RESP 18
--- NOTE | 2016-09-06 17:49 | DS ---
Date/Time of Note Date/Time of Note DATE: 09/06/16 TIME: 17:47 Obstetrical Discharge Record Final Diagnosis Final Diagnosis: Term delivered Other Final Diagnosis S/P vaginal delivery Vaginal Delivery Obstetrical Delivery: Spontaneous, Laceration, Repaired Condition on Discharge Physical Assessment Last Vitals: see nurses notes Voiding: Yes Bowel Movement: Yes Breast: Soft, non-tender, Filling Fundus: Firm Abdomen and Incision: soft BS + Episiotomy: NA Calf Tenderness: No Patient Condition: Good BOB BARON MD Sep 06, 2016 17:48
[2016-09-06] MEDS ORDERED: IBUP-1542 PO (17:51)
--- NOTE | 2016-09-06 17:51 | PD.PPDC ---
SOLUTION ENGINEER Discharge Instruction Provider Information Physician Information 21 y/o female had vaginal delivery Diagnosis Final Diagnosis: S/P vaginal delivery Condition Patient Condition: Good Diet Diet: Resume Regular Diet Activity/Restrictions Activity: Normal Activity May Shower Restrictions: Nothing in the Vagina Return to Work or School: October 25, 2016 Follow-up Follow-up with Physician: 4, Week/Weeks (in clinic) Return to clinic for OB Instructions: Breast Tenderness Depression BOB BARON MD Sep 06, 2016 17:50
[2016-09-06 20:00] VITALS: BP 104/65; PULSE 18; RESP 18
[2016-09-07 04:00] VITALS: BP 96/72; PULSE 77; RESP 18
[2016-09-07] MEDS: IBUPROFEN 600 MG TAB PO SCH ×2 (06:39→12:13)
[2016-09-07] MEDS: OXYCODONE/ASPIRIN (4.88/325) TAB PO PRN (07:58)
[2016-09-07] MEDS: LANOLIN 7 GM TUBE TOP PRN (07:59)
[2016-09-07 08:00] VITALS: BP 100/65; PULSE 81; RESP 16
[2016-09-07] MEDS ORDERED: DIPHTH/TET/ACEL PERTUSS (ADULT) 0.5 ML VIAL IM* ONE (09:00)
[2016-09-07] MEDS: BENZOCAINE 20% 56 ML SPRAY TOP PRN (09:25)
[2016-09-07] MEDS: LACTATED RINGER'S 1,000 ML IV* SCH (09:35)
== END 2016-09-07 13:20 | disposition home or self-care (01) | DRG 775 ==
LOC: OBT 18:10 → L-D 18:10 → OBT 18:20 → L-D 18:20 → PP1 09-06 01:06
PROVIDERS: ADMIT Obstetrics & Gynecology; ATTEND Obstetrics & Gynecology
PROC: 10E0XZZ Delivery of Products of Conception, External Approach (ICD-10-PCS; principal; 2016-09-05)
PROC: 0KQM0ZZ Repair Perineum Muscle, Open Approach (ICD-10-PCS; 2016-09-05)
PROC: 4A1HX4Z Monitoring of Products of Conception, Cardiac Electrical Activity, External Approach (ICD-10-PCS; 2016-09-05)
DX: O70.1 Second degree perineal laceration during delivery (principal); Z37.0 Single live birth; Z3A.38 38 weeks gestation of pregnancy
CPT/HCPCS: 62319; 85025; 85610; 85730; 86592; 86900; 86901; 90715; G0463; J2590; J3010; J7120

== ENCOUNTER 2017-09-12 21:49 | Outpatient (CLI) | END 2017-09-13 02:14 | disposition home or self-care (01) ==

== ENCOUNTER 2017-11-16 16:44 | Outpatient (CLI) | END 2017-11-16 18:30 | disposition home or self-care (01) ==

== ENCOUNTER 2017-11-18 16:02 | Inpatient (IN) | END 2017-11-21 14:15 | disposition home or self-care (01) | DRG 775 ==

== ENCOUNTER 2018-03-26 12:56 | Emergency (ER) | END 2018-03-26 13:57 | disposition left against medical advice (07) ==